=== PATIENT | female | born 1980 | race Caucasian/White ===

== ENCOUNTER → 2020-02-24 | Outpatient (REF) | payer BC ==
[~2020-02-24] MED LIST: METF10004 PO; MOTR200T44 PO; PRE-TAB3 PO; TYLE325T5 PO
[2020-03-04 14:22] LABS: CHLAMYDIA DNA AMPLIFICATION NEGATIVE (NEGATIVE); GC DNA AMPLIFICATION NEGATIVE (NEGATIVE)
== END ==
LOC: M SFHCWAGY 10:20
PROVIDERS: ATTEND Advanced Practice Midwife
DX: Z12.4 Encounter for screening for malignant neoplasm of cervix (principal)
CPT/HCPCS: 87491; 87591; 87624; 87661; G0123

== ENCOUNTER → 2020-06-14 | Outpatient (CLI) | payer BC ==
--- NOTE | 2020-06-14 16:55 | REP ---
INDICATION: R92.8 ABN LEFT BREAST; R92.8 ABN LEFT MAMMO. Second opinion. COMPARISON: Comparison is made with the [facility] mammography from 05 May 2020 and 21 May 2020. Sonography from the same facility dated a May 2020 of the left breast is also reviewed. No more remote breast imaging is available. TECHNIQUE: Routine views of the left breast are augmented by laterally exaggerated craniocaudal and true mediolateral views. 3D tomography was acquired and targeted left breast ultrasound is performed from 11:00 to 2:00. This mammogram was interpreted with the aid of an FDA-approved computer-aided detection system. FINDINGS: Heterogeneously dense breast parenchyma is observed. This may inhibit the sensitivity of mammography. There is no evidence of left breast mass, architectural distortion, or worrisome skin change. No grouping of suspicious microcalcifications is seen. The Volpara volumetric breast density pattern is b. Targeted ultrasound: Targeted left breast sonography demonstrates a benign 5 mm cyst in the 1 o'clock position 3 cm from the nipple. At 12 o'clock, 4 cm from the nipple, there is a oval-shaped hypoechoic nodule with its long axis parallel to the skin. This is it measures 5 x 5 x 2 mm. It does not meet criteria of a simple cyst. No other sonographic abnormality. IMPRESSION: BIRADS/ACR category 4 suspicious left breast mammographic and sonographic findings. 5 mm oval structure in the left breast at 12 o'clock position on ultrasound. This does not meet criteria of simple cyst. Histologic sampling is recommended. This patient's Tyrer-Cuzick lifetime breast cancer risk assessment score is 17.4%. RECOMMENDATION: Ultrasound-guided needle biopsy of the left breast 12 o'clock nodule recommended with marker clip placement and post clip placement mammography.. The patient letter being requested is M4. <Electronically signed by Judd Wasserman > 06/14/20 1615
== END ==
LOC: M WHC 10:58
PROVIDERS: ATTEND Advanced Practice Midwife
DX: R92.8 Other abnormal and inconclusive findings on diagnostic imaging of breast (principal)

== ENCOUNTER → 2020-06-24 | Outpatient (CLI) | payer BC | LOC: M PLALAB 10:30 | PROVIDERS: ATTEND Surgery | DX: Z13.79 Encounter for other screening for genetic and chromosomal anomalies (principal) ==

== ENCOUNTER → 2020-06-30 | Outpatient (CLI) | payer BC ==
[~2020-06-30] MED LIST changes: +VITMTA PO
[2020-06-30 16:59] VITALS: BP 118/78
--- NOTE | 2020-07-01 08:19 | REP ---
INDICATION: R92.8 ABN LEFT MAMMO/U/S GUIDED BX. COMPARISON: Comparison sonography 21 May 2020.. TECHNIQUE: Sonographic guidance. FINDINGS: Sonographic guidance is provided to Dr. Solomon who performed ultrasound-guided needle biopsy of the left breast with marker clip placement. IMPRESSION: Sonographic guidance. Procedural imaging. <Electronically signed by Judd Wasserman > 07/01/20 0809
--- NOTE | 2020-07-01 08:22 | REP ---
INDICATION: R92.8 ABN LEFT MAMMO/U/S GUIDED BX/CK CLIP PLACEMENT. COMPARISON: Comparison mammography June 14, 2020. TECHNIQUE: Craniocaudal and mediolateral views of the left breast are obtained. Clip placement mammography. This mammogram was interpreted with the aid of an FDA-approved computer-aided detection system. FINDINGS: Today's mammographic images demonstrate a marker clip in place in the superomedial quadrant anterior 3rd left breast. No significant mammographic abnormality has been identified. . : IMPRESSION: Marker clip seen in the superomedial quadrant left breast anterior 3rd.. RECOMMENDATION: Treatment recommendations depending on biopsy results.. <Electronically signed by Judd Wasserman > 07/01/20 0886
--- NOTE | 2020-07-03 18:43 | ROOPDOC ---
[facility] Report Of Operation Report of Operation DATE OF PROCEDURE: 06/30/2020 DIAGNOSIS: Left breast suspicious lesion PROCEDURE: Ultrasound guided biopsy of left breast suspicious lesion with clip placement SURGEON: Viktoriya Barbour BLOOD LOSS: minimal COMPLICATIONS: none Lidocaine 1% LOT [id number] Expiration 09/11/2023 Sodium Bicarbonate 8.4% LOT [id number] Expiration 08/12/2020 Hydromark mammotome clip LOT [id number] Expiration 02/17/2023 SHAPE 3 Bx device: Bard Marquee LOT [id number] Expiration 04/10/2023 Informed consent was obtained. I explained the most common risk and possible complications to the patient including bleeding, hematoma, bruising, infection, injury to surrounding structures and the patient expressed understanding. Patient was placed on the bed in the supine position. Appropriate time out was done stating patients name, date of , and the procedure to be performed. The left breast was prepped and draped in the usual fashion. The ultrasound was used to confirm the location of the lesion in the left breast at 12:00 4 centimeters from the nipple. Plain Lidocaine 1% and 8.4% sodium bicarbonate 10:1 mix was used to anesthetize the skin, the biopsy site and tissues along the anticipated biopsy tract. Small skin incision was made with blade number 11. BARD Marquee 14G cannula with introducer ([id number]) was inserted through the incision and advanced under the ultrasound guidance to position immediately adjacent to the lesion. Next, the introducer was removed and BARD Marquee 14G biopsy device was places in the cannula. Pre-biopsy imaging, and post-biopsy imaging were captured. Five good core biopsies were taken at various levels of the lesion. Specimen was placed in formaldehyde, labeled with appropriate biopsy site and patients name, and sent to pathology for evaluation. Next, the biopsy device was withdrawn and a clip introducer was inserted into the biopsy site via the cannula. The SHAPE 3 Hydromark clip was deployed under sonographic guidance. Post-clip placement image was captured. Manual pressure over the biopsy cavity and tract was held after the clip introducer was withdrawn. No bleeding was noted upon removal of the pressure. Post-biopsy mammogram of the left breast was obtained and showed clip in expected position. Postprocedural dressing was placed. Patient tolerated procedure well. Discharge instructions were discussed with the patient and the patient expressed understanding. VIKTORIYA BARBOUR DO Jul 03, 2020 18:43
== END ==
LOC: M WHCPRO 15:45
PROVIDERS: ATTEND Surgery
DX: N60.22 Fibroadenosis of left breast (principal)

== ENCOUNTER → 2020-12-27 | Outpatient (CLI) | payer BC ==
--- NOTE | 2020-12-28 09:26 | REP ---
INDICATION: Assess clip at the 12 o'clock position COMPARISON: 06/14/2020 and 06/30/2020 TECHNIQUE: Real-time sonographic evaluation of the left breast at 12 o'clock over previous biopsy site FINDINGS: The solid nodule seen previously in the left breast at 12 o'clock is no longer present. There is a surgical biopsy clip in place at that position. There is a small amount of fluid seen surrounding the clip. No abnormalities are noted. IMPRESSION: Status post left breast biopsy with biopsy clip deployment as described above. ACR category 2 benign findings. No abnormalities are noted <Electronically signed by Del Dumont > 12/28/20 0952
== END ==
LOC: M WHC 13:25
PROVIDERS: ATTEND Surgery
DX: R92.8 Other abnormal and inconclusive findings on diagnostic imaging of breast (principal); Z97.8 Presence of other specified devices

== ENCOUNTER → 2021-04-28 | Outpatient (CLI) | payer BC ==
--- NOTE | 2021-04-28 14:28 | REPMRS ---
Patient History The patient states she had a clinical breast exam in 2020. Family history of colorectal cancer in paternal aunt, breast cancer in paternal cousin. Benign US guided breast biopsy. of the left breast, June 30, 2020. Hx of benign U/S bx No breast complaints today Patient signed the MRS sheet No covid vaccines Priors on PACS Patient Identification Verified Patient denied Digital Woman Screen Mammo: April 28, 2021 - Exam #: [id number] Bilateral CC and MLO view(s) were taken. Technologist: Polly Trammell, Technologist Prior study comparison: June 30, 2020, left breast diagnostic unilateral mammo performed at [facility]. June 14, 2020, left breast diagnostic unilateral mammo performed at [facility]. FINDINGS: The breast tissue is heterogeneously dense. This may lower the sensitivity of mammography. Screening. Digital screening (2D) mammography was performed bilaterally in the CC and MLO projections. Additionally, breast tomosynthesis (3D mammography) was performed bilaterally in the CC and MLO projections. Todays exam was compared to the prior exam/exams. By history, the patient has no complaints of a palpable breast abnormality or other significant breast complaints. The breasts are unchanged in size and shape.Once again, dense heterogenous fibroglandular elements are seen bilaterally in a stable appearing pattern but to such a degree that the sensitivity of the mammogram in detecting cancer is decreased. There are no luis-soft tissue densities or spiculated masses. There is no internal architectural distortion. There are no suspicious luis-calcific clusters. Skin thickening or nipple retraction is not present. IMPRESSION: BI-RADS Category 2- Benign Findings. There is no evidence of malignant alteration of the breasts. Followup examination recommended in one year. The Volpara volumetric breast density category is C, the breasts are heterogenously dense which may obscure small masses. This mammogram was read with the assistance of [employer],an FDA approved computer aided detection system for mammography. The lifetime Tyrer-Cuzick score is 17.2 % Negative x-ray reports should not delay surgical consultation if a dominant or clinically suspicious mass is present. Not all breast cancers can be identified by mammography. Therefore, we recommend that you continue to perform regular breast self-examination and physical examination and then promptly contact your physician of any concerns or changes. Adenosis and dense breasts may obscure an underlying neoplasm. Assessment: BI-RADS/ACR category 2 mammogram. Benign Findings. Recommendation Routine screening mammogram of both breasts in 1 year. Electronically Signed By: Del Dumont DO 04/28/21 7138
== END ==
LOC: M WHC 13:23
PROVIDERS: ATTEND Advanced Practice Midwife
DX: Z12.31 Encounter for screening mammogram for malignant neoplasm of breast (principal)

== ENCOUNTER → 2021-07-15 | Outpatient (CLI) | payer BC | LOC: M LAB 16:58 | PROVIDERS: ATTEND Advanced Practice Midwife | DX: Z32.00 Encounter for pregnancy test, result unknown (principal) ==

== ENCOUNTER → 2021-07-17 | Outpatient (CLI) | payer BC | LOC: M LAB 09:34 | PROVIDERS: ATTEND Advanced Practice Midwife | DX: O20.0 Threatened abortion (principal); Z3A.00 Weeks of gestation of pregnancy not specified ==

== ENCOUNTER → 2021-07-22 | Outpatient (CLI) | payer BC | LOC: M LAB 17:37 | PROVIDERS: ATTEND Obstetrics & Gynecology | DX: O03.9 Complete or unspecified spontaneous abortion without complication (principal) ==

== ENCOUNTER → 2021-07-22 | Outpatient (CLI) | payer BC | LOC: M LAB 17:39 | PROVIDERS: ATTEND Advanced Practice Midwife | DX: O03.9 Complete or unspecified spontaneous abortion without complication (principal) ==

== ENCOUNTER → 2021-09-08 | Outpatient (CLI) | payer BC | LOC: M LAB 10:45 | PROVIDERS: ATTEND Obstetrics & Gynecology | DX: Z34.01 Encounter for supervision of normal first pregnancy, first trimester (principal) ==

== ENCOUNTER → 2021-09-10 | Outpatient (CLI) | payer BC | LOC: M LAB 09:10 | PROVIDERS: ATTEND Obstetrics & Gynecology | DX: Z32.01 Encounter for pregnancy test, result positive (principal) ==

== ENCOUNTER → 2021-10-29 | Outpatient (CLI) | payer BC ==
[2021-10-29 12:56] LABS: HEMATOCRIT 37.8 % (36.0-47.0); MEAN CORPUSCULAR HEMOGLOBIN 30.7 pg (27.0-33.0); MEAN CORPUSCULAR HGB CONC 34.4 g/dl (32.0-36.5); MEAN CORPUSCULAR VOLUME 89.2 fl (80.0-96.0); PLATELET COUNT, AUTOMATED 252 10^3/uL (150-450); RED BLOOD COUNT 4.24 10^6/uL (4.00-5.40); WHITE BLOOD COUNT 9.1 10^3/uL (4.0-10.0)
[2021-10-29 13:26] LABS: ALT/SGPT 14 U/L (12-78); BILIRUBIN,TOTAL 0.3 MG/DL (0.2-1.0); CREATININE FOR GFR 0.66 MG/DL (0.55-1.30); GLOMERULAR FILTRATION RATE > 60.0 (>58); LDH LACTATE DEHYDROGENASE 122 U/L (84-246); URIC ACID 2.9 MG/DL (2.6-6.0)
[2021-10-29 13:33] LABS: TOTAL PROTEIN,RANDOM URINE 15.8 MG/DL (0.0-12.0)
[2021-10-29 15:36] LABS: GC DNA AMPLIFICATION NEGATIVE (NEGATIVE)
[2021-10-31 09:30] LABS: HEPATITIS C VIRUS ABY INDEX 0.1 INDEX (<0.8)
[2021-10-31 09:32] LABS: HIV 1&2 SCREEN CENTAUR NEGATIVE (NEGATIVE)
== END ==
LOC: M LAB 11:53
PROVIDERS: ATTEND Obstetrics & Gynecology
DX: O09.511 Supervision of elderly primigravida, first trimester (principal); Z3A.00 Weeks of gestation of pregnancy not specified

== ENCOUNTER → 2021-12-23 | Outpatient (CLI) | payer BC | LOC: M WHC 07:25 | PROVIDERS: ATTEND Specialist | DX: Z34.82 Encounter for supervision of other normal pregnancy, second trimester (principal); Z3A.19 19 weeks gestation of pregnancy ==

== ENCOUNTER → 2022-01-13 | Outpatient (CLI) | payer BC | LOC: M WHC 09:17 | PROVIDERS: ATTEND Specialist | DX: Z34.82 Encounter for supervision of other normal pregnancy, second trimester (principal); Z3A.22 22 weeks gestation of pregnancy ==

== ENCOUNTER → 2022-02-28 | Outpatient (CLI) | payer BC ==
[2022-02-28 14:26] LABS: HEMATOCRIT 38.2 % (36.0-47.0); HEMOGLOBIN 12.9 g/dl (12.0-15.5); MEAN CORPUSCULAR HEMOGLOBIN 32.4 pg (27.0-33.0); MEAN CORPUSCULAR HGB CONC 33.8 g/dl (32.0-36.5); PLATELET COUNT, AUTOMATED 243 10^3/uL (150-450); RED BLOOD COUNT 3.98 10^6/uL (4.00-5.40); WHITE BLOOD COUNT 11.6 10^3/uL (4.0-10.0)
[2022-02-28 14:58] LABS: ALT/SGPT 13 U/L (12-78); BILIRUBIN,TOTAL 0.2 MG/DL (0.2-1.0); BLOOD UREA NITROGEN 5 MG/DL (7-18); CALCIUM LEVEL 8.8 MG/DL (8.5-10.1); CARBON DIOXIDE LEVEL 24 MEQ/L (21-32); CHLORIDE LEVEL 104 MEQ/L (98-107); CREATININE FOR GFR 0.68 MG/DL (0.55-1.30); GLOMERULAR FILTRATION RATE > 60.0 (>58); GLUCOSE CHALLENGE TEST 1 HOUR 155 MG/DL (LESS THAN 140); GLUCOSE, FASTING 155 MG/DL (70-100); POTASSIUM SERUM 4.4 MEQ/L (3.5-5.1); SODIUM LEVEL 136 MEQ/L (136-145); TOTAL PROTEIN 6.9 GM/DL (6.4-8.2)
[2022-02-28 15:00] LABS: CREATININE,RANDOM URINE 75.8 MG/DL; TOTAL PROTEIN,RANDOM URINE 13.9 MG/DL (0.0-12.0)
[2022-02-28 16:18] LABS: GC DNA AMPLIFICATION NEGATIVE (NEGATIVE)
== END ==
LOC: M PLALAB 10:40
PROVIDERS: ATTEND Obstetrics & Gynecology
DX: Z34.92 Encounter for supervision of normal pregnancy, unspecified, second trimester (principal); Z3A.24 24 weeks gestation of pregnancy
CPT/HCPCS: 36415; 80053; 82570; 82950; 84156; 85027; 86850; 86900; 86901; 87086; 87810; 87850; J2790

== ENCOUNTER → 2022-04-03 | Outpatient (CLI) | payer BC | LOC: M WHC 12:39 | PROVIDERS: ATTEND Obstetrics & Gynecology | DX: O10.913 Unspecified pre-existing hypertension complicating pregnancy, third trimester (principal); Z3A.36 36 weeks gestation of pregnancy ==

== ENCOUNTER → 2022-04-18 | Outpatient (REF) | payer BC | LOC: M SFHCWAGY 16:55 | PROVIDERS: ATTEND Advanced Practice Midwife | DX: O09.529 Supervision of elderly multigravida, unspecified trimester (principal); Z3A.00 Weeks of gestation of pregnancy not specified ==

== ENCOUNTER → 2022-04-26 | Outpatient (CLI) | payer BC | LOC: M RAD 10:10 | PROVIDERS: ATTEND Advanced Practice Midwife | DX: O09.529 Supervision of elderly multigravida, unspecified trimester (principal); Z3A.36 36 weeks gestation of pregnancy ==

== ENCOUNTER 2022-04-28 10:57 | Outpatient (CLI) | payer BC ==
[~2022-04-28] VITALS: Ht 170.2 cm; Wt 110.1 kg
[2022-04-28 11:13] VITALS: BP 134/91
[2022-04-28] MEDS ORDERED: LR 1,000 ML IV ONE (11:45)
== END 2022-04-28 13:15 | disposition home or self-care (01) ==
LOC: M LDO 10:57
PROVIDERS: ATTEND Advanced Practice Midwife
DX: O13.3 Gestational [pregnancy-induced] hypertension without significant proteinuria, third trimester (principal); O09.513 Supervision of elderly primigravida, third trimester; Z3A.36 36 weeks gestation of pregnancy
CPT/HCPCS: 59025; G0463

== ENCOUNTER 2022-05-03 07:59 | Inpatient (IN) | payer BC ==
[2022-05-03] VITALS (18 sets, daily range): BP systolic 102–166; BP diastolic 55–96
[~2022-05-03] VITALS: Ht 170.2 cm; Wt 110.4 kg
[2022-05-03] MEDS ORDERED: ASPI81CH33 PO (08:48)
[2022-05-03] MEDS ORDERED: OXYTOCIN DRIP 30 UNITS in IV 1 EA IV PRN ×4 (10:05)
[2022-05-03] MEDS ORDERED: OXYTOCIN INJ 10UNITS/ML 1ML VIAL IM PRN (10:05)
[2022-05-03] MEDS ORDERED: miSOPROStol 50MCG 1/2 TABLET PO ONE ×2 (10:05→15:25)
[2022-05-03] MEDS ORDERED: TRANEXAMIC ACID INJection 1,000 MG in NS 100 ML IV PRN (10:05)
[2022-05-03] MEDS ORDERED: CARBOPROST TROMETHAMINE 250 MCG/ML AMP IM PRN (10:05)
[2022-05-03] MEDS ORDERED: LIDOCAINE 1% MDV 20ML VIAL INFIL PRN (10:05)
[2022-05-03 11:18] LABS: HEMATOCRIT 35.3 % (36.0-47.0); HEMOGLOBIN 12.1 g/dl (12.0-15.5); MEAN CORPUSCULAR HEMOGLOBIN 31.9 pg (27.0-33.0); MEAN CORPUSCULAR HGB CONC 34.3 g/dl (32.0-36.5); MEAN CORPUSCULAR VOLUME 93.1 fl (80.0-96.0); PLATELET COUNT, AUTOMATED 209 10^3/uL (150-450); RED BLOOD COUNT 3.79 10^6/uL (4.00-5.40); WHITE BLOOD COUNT 10.3 10^3/uL (4.0-10.0)
[2022-05-03 11:53] LABS: TOTAL PROTEIN,RANDOM URINE 31.4 MG/DL (0.0-14.0)
[2022-05-03 11:58] LABS: CREATININE,RANDOM URINE 177.6 MG/DL
[2022-05-03 12:42] LABS: ALT/SGPT 29 U/L (7.0-40); AST/SGOT 131 U/L (<34); BILIRUBIN,TOTAL 0.5 MG/DL (0.3-1.2); CREATININE FOR GFR 0.64 MG/DL (0.55-1.30); GLOMERULAR FILTRATION RATE > 60.0 (>58); LDH LACTATE DEHYDROGENASE 875 U/L (120-246); URIC ACID 5.1 MG/DL (3.1-7.8)
[2022-05-03] MEDS ORDERED: OXYTOCIN 30UNITS IN 0.9% NaCl 500ML IV BAG As Ordered ONE (19:38)
[2022-05-03] MEDS ORDERED: LR 1,000 ML IV SCH (19:40)
[2022-05-03] MEDS ORDERED: OXYTOCIN DRIP 30 UNITS in IV 1 EA IV SCH (19:40)
[2022-05-04] VITALS (21 sets, daily range): BP systolic 106–177; BP diastolic 55–100
[2022-05-04] MEDS ORDERED: BUTORPHANOL 2 MG/ML 1ML VIAL IV ONE (00:20)
[2022-05-04] MEDS ORDERED: PROMETHAZINE 25MG/ML 1ML VIAL IV ONE (00:20)
[2022-05-04] MEDS ORDERED: FENTANYL/ROPIVACAINE/NACL BAG 100 ML EPIDURAL SCH (01:20)
[2022-05-04] MEDS ORDERED: ONDANSETRON 4MG 2ML VIAL IV PRN (01:20)
[2022-05-04] MEDS ORDERED: LR 500 ML IV PRN (01:20)
[2022-05-04] MEDS ORDERED: diphenhydrAMINE 50MG/ML VIAL IV PRN (01:20)
[2022-05-04] MEDS ORDERED: EPIDURAL/PCA KEYS XX PRN (01:20)
[2022-05-04] MEDS ORDERED: ePHEDrine SULFATE 25 MG/5 ML(5MG/ML) SYRINGE IVP PRN (01:20)
[2022-05-04] MEDS ORDERED: NALOXONE INJ 0.4MG/1ML VIAL IV PRN (01:20)
[2022-05-04] MEDS ORDERED: DIBUCAINE 1% OINTMENT 30GM TOP PRN (04:40)
[2022-05-04] MEDS ORDERED: DOCUSATE SODIUM 100MG CAPSULE PO PRN (04:40)
[2022-05-04] MEDS ORDERED: RHOGAM 300MCG (1500IU) INJ IM SCH (04:40)
[2022-05-04] MEDS ORDERED: OXYTOCIN DRIP 30 UNITS in IV 1 EA IV SCH (04:40)
[2022-05-04] MEDS ORDERED: ACETAMINOPHEN 500 MG TAB PO PRN (04:40)
[2022-05-04] MEDS ORDERED: IBUPROFEN 600MG TAB PO PRN (04:40)
[2022-05-04] MEDS: PRENATAL VITAMINS CHEWABLE TABLET PO SCH (08:04)
[2022-05-04] MEDS: IBUPROFEN 800 MG TAB PO PRN ×2 (11:53→23:52)
[2022-05-04] MEDS: ACETAMINOPHEN TAB 650MG DOSE (2X325MG) PO PRN (17:02)
[2022-05-05 06:00] VITALS: BP 119/74
[2022-05-05] MEDS: ACETAMINOPHEN TAB 650MG DOSE (2X325MG) PO PRN (06:48)
[2022-05-05] MEDS: PRENATAL VITAMINS CHEWABLE TABLET PO SCH (09:00)
[2022-05-06] MEDS ORDERED: MEASLES,MUMPS,RUBELLA VACCINE INJ (MMR-II) SC.IMMUN ONE (09:00)
== END 2022-05-05 13:00 | disposition home or self-care (01) | DRG 560 ==
LOC: M LDI 07:59 → M OBS 05-04 09:49
PROVIDERS: ADMIT Advanced Practice Midwife; ATTEND Advanced Practice Midwife
PROC: 3E0P7GC Introduction of Other Therapeutic Substance into Female Reproductive, Via Natural or Artificial Opening (ICD-10-PCS; 2022-05-03)
PROC: 10E0XZZ Delivery of Products of Conception, External Approach (ICD-10-PCS; principal; 2022-05-04)
PROC: 0HQ9XZZ Repair Perineum Skin, External Approach (ICD-10-PCS; 2022-05-04)
PROC: 10907ZC Drainage of Amniotic Fluid, Therapeutic from Products of Conception, Via Natural or Artificial Opening (ICD-10-PCS; 2022-05-04)
DX: O13.4 Gestational [pregnancy-induced] hypertension without significant proteinuria, complicating childbirth (principal); Z3A.37 37 weeks gestation of pregnancy; O09.523 Supervision of elderly multigravida, third trimester; O69.81X0 Labor and delivery complicated by cord around neck, without compression, not applicable or unspecified; O70.0 First degree perineal laceration during delivery; Z37.0 Single live birth

== ENCOUNTER → 2022-10-26 | Outpatient (REF) | payer BC ==
[~2022-10-26] MED LIST changes: +ASPI81CH33 PO
== END ==
LOC: M PLALAB 14:58
PROVIDERS: ATTEND Advanced Practice Midwife
DX: Z12.4 Encounter for screening for malignant neoplasm of cervix (principal)
CPT/HCPCS: 87624; G0123

== ENCOUNTER → 2025-03-10 | Outpatient (CLI) | payer BC | LOC: M WHC 14:17 | DX: Z12.31 Encounter for screening mammogram for malignant neoplasm of breast (principal) ==